=== PATIENT | female | born 2005 | race Caucasian/White ===

== ENCOUNTER 2024-06-23 07:38 | Inpatient (IN) | payer MEDICAID ==
[~2024-06-23 07:38] MED LIST: Bupivacaine 0.25% 10 ML SDV ONE
[2024-06-23] MEDS ORDERED: Lidocaine 1% 50 ML MDV INJECT PRN (19:24)
[2024-06-23] MEDS ORDERED: Sodium Chloride 0.9% 10 ML Syringe FLUSH PRN (19:24)
[2024-06-23] MEDS ORDERED: Oxytocin/0.9 % Sodium Chloride 30 UNIT/500 ML BAG IV SCH (19:30)
[2024-06-23 19:44] LABS: BASOPHILS PERCENT AUTO 0.1 % (0.0-1.0); EOSINOPHILS ABSOLUTE AUTO 0.1 K/mm3 (0.0-0.4); EOSINOPHILS PERCENT AUTO 0.6 % (0.0-6.0); HEMATOCRIT 35.4 % (37.0-47.0); HEMOGLOBIN 11.8 gm/dl (12.0-16.0); IMMATURE GRAN ABSOLUTE AUTO 0.02 K/mm3 (0.00-0.05); IMMATURE GRAN PERCENT AUTO 0.2 % (0.0-0.4); LYMPHOCYTES ABSOLUTE AUTO 2.2 K/mm3 (1.0-4.8); LYMPHOCYTES PERCENT AUTO 26.3 % (24.0-44.0); MEAN CORPUSCULAR HEMOGLOBIN 30.6 pg (28.0-32.0); MEAN CORPUSCULAR HGB CONC 33.3 g/dl (32.0-36.0); MEAN CORPUSCULAR VOLUME 91.9 fl (83.0-99.0); MEAN PLATELET VOLUME 11.5 fl (9.4-12.3); MONOCYTES ABSOLUTE AUTO 0.5 K/mm3 (0.0-0.8); MONOCYTES PERCENT AUTO 6.2 % (0.0-8.0); NEUTROPHILS ABSOLUTE AUTO 5.6 K/mm3 (1.8-7.7); NEUTROPHILS PERCENT AUTO 66.6 % (41.0-71.0); PLATELET COUNT,PLT 230 K/mm3 (150-400); RED BLOOD CELL COUNT 3.85 M/mm3 (4.10-5.30); WHITE BLOOD CELL COUNT,WBC 8.34 K/mm3 (3.9-11.3)
[2024-06-23] MEDS: Lactated Ringers 1,000 ML IV SCH (21:34)
[2024-06-23] MEDS: Oxytocin/0.9 % Sodium Chloride 30 UNIT/500 ML BAG IV SCH (21:36)
[2024-06-24] MEDS: Sodium Chloride 0.9% 10 ML Syringe FLUSH SCH (01:45)
[2024-06-24] MEDS ORDERED: ePHEDrine 50 MG/ML SDV IVPUSH PRN (01:50)
[2024-06-24] MEDS: fentaNYL 100 MCG/2 ML SDV EPIDUR PRN (02:01)
[2024-06-24] MEDS: Bupivacaine/fentaNYL/NS 100 ML Bag EPIDUR PRN (02:02)
[2024-06-24] MEDS: diphenhydrAMINE 50 MG/ML SDV IVPUSH PRN (04:59)
[2024-06-24] MEDS: Benzocaine/Menthol 20%-0.5% Spray 78 GM Cannister TOP PRN (09:51)
[2024-06-24] MEDS: Witch Hazel Medicated Pads 40/Jar TOP PRN (09:51)
[2024-06-24] MEDS: Ibuprofen 600 MG Tab PO SCH (09:51)
[2024-06-24 21:18] LABS: BASOPHILS PERCENT AUTO 0.3 % (0.0-1.0); EOSINOPHILS ABSOLUTE AUTO 0.1 K/mm3 (0.0-0.4); EOSINOPHILS PERCENT AUTO 0.8 % (0.0-6.0); HEMATOCRIT 26.4 % (37.0-47.0); HEMOGLOBIN 8.9 gm/dl (12.0-16.0); IMMATURE GRAN ABSOLUTE AUTO 0.03 K/mm3 (0.00-0.05); IMMATURE GRAN PERCENT AUTO 0.4 % (0.0-0.4); LYMPHOCYTES ABSOLUTE AUTO 1.5 K/mm3 (1.0-4.8); MEAN CORPUSCULAR HEMOGLOBIN 31.3 pg (28.0-32.0); MEAN CORPUSCULAR HGB CONC 33.7 g/dl (32.0-36.0); MEAN PLATELET VOLUME 11.9 fl (9.4-12.3); MONOCYTES ABSOLUTE AUTO 0.5 K/mm3 (0.0-0.8); MONOCYTES PERCENT AUTO 6.9 % (0.0-8.0); NEUTROPHILS ABSOLUTE AUTO 5.7 K/mm3 (1.8-7.7); NEUTROPHILS PERCENT AUTO 72.6 % (41.0-71.0); PLATELET COUNT,PLT 169 K/mm3 (150-400); RED BLOOD CELL COUNT 2.84 M/mm3 (4.10-5.30); WHITE BLOOD CELL COUNT,WBC 7.86 K/mm3 (3.9-11.3)
[2024-06-25] MEDS: Acetaminophen 325 MG Tab PO PRN (00:46)
[2024-06-25] MEDS: Ferrous Sulfate 324 MG Tab.EC PO SCH (09:53)
== END 2024-06-25 17:45 | disposition home or self-care (01) | DRG 806 ==
LOC: JD.OB 07:38 → OBSVTOIN 06-24 07:38 → JD.OB 06-24 07:39
PROVIDERS: ADMIT Obstetrics & Gynecology; ATTEND Obstetrics & Gynecology
PROC: 10E0XZZ Delivery of Products of Conception, External Approach (ICD-10-PCS; principal; 2024-06-24)
PROC: 0UQG7ZZ Repair Vagina, Via Natural or Artificial Opening (ICD-10-PCS; 2024-06-24)
PROC: 3E0R3BZ Introduction of Anesthetic Agent into Spinal Canal, Percutaneous Approach (ICD-10-PCS; 2024-06-24)
PROC: 00HU33Z Insertion of Infusion Device into Spinal Canal, Percutaneous Approach (ICD-10-PCS; 2024-06-24)
DX: O48.0 Post-term pregnancy (principal); D62 Acute posthemorrhagic anemia; Z37.0 Single live birth; O71.4 Obstetric high vaginal laceration alone; Z3A.41 41 weeks gestation of pregnancy; O90.81 Anemia of the puerperium
CPT/HCPCS: 36415; 51702; 59025; 59409; 85025; 86592; A9270-GY; J0665; J1200; J3010; J3490; J7120; J7999

== ENCOUNTER 2024-06-27 22:30 | Emergency (ER) | payer MEDICAID | END 2024-06-28 00:29 | disposition home or self-care (01) | LOC: JD.ED 22:30 | DX: T19.2XXA Foreign body in vulva and vagina, initial encounter (principal); F17.210 Nicotine dependence, cigarettes, uncomplicated | CPT/HCPCS: 99283 ==